=== PATIENT | female | born 1965 ===

== ENCOUNTER 2018-04-08 07:05 | Outpatient (CLI) | payer OTHER | END 2018-04-08 12:23 | disposition home or self-care (01) | LOC: MRI 07:05 | DX: I72.8 Aneurysm of other specified arteries (principal) | CPT/HCPCS: 70544 ==

== ENCOUNTER 2025-02-09 10:29 | Outpatient (CLI) | payer OTHER | END 2025-02-09 16:24 | disposition home or self-care (01) | LOC: MRI 10:29 | DX: I63.9 Cerebral infarction, unspecified (principal); Z86.79 Personal history of other diseases of the circulatory system | CPT/HCPCS: 70544 ==